=== PATIENT | female | born 1995 | race Caucasian/White ===

== ENCOUNTER 2020-02-23 20:28 | Emergency (ER) | payer SELFPAY ==
[2020-02-23 20:34] VITALS: BP 140/95; PULSE 97; RESP 20; TEMP 36.7; O2SAT 99; BMI 37.2
--- NOTE | 2020-02-23 20:56 | PC.NURSE ---
MOTHER COMING TO LITERACY CONSULTANT PATIENT, STATING THAT THEY ARE GOING TO A HOSPITAL CLOSER TO THEIR HOME. REFUSING TO STAY TO BE SEEN. PATIENT UP AND AMBULATING WITH MOTHER. DENIES PAIN OR DISCOMFORT. NO FACIAL GRIMACE OR DISTRESS NOTED. MOTHER STATING I AM A NURSE SO I CAN JUST WATCH HER
== END 2020-02-23 20:57 | disposition left against medical advice (07) ==
PROVIDERS: Emergency Provider Student in an Organized Health Care Education/Training Program
DX: Z04.1 Encounter for examination and observation following transport accident (principal)
CPT/HCPCS: 99281; 99282